=== PATIENT | male | born 1940 | race Caucasian/White ===

== ENCOUNTER 2020-11-20 14:07 | Inpatient (IN) ==
[2020-11-25] MEDS ORDERED: Acetaminophen 325 MG TABLET PO PRN (20:40)
[2020-11-25] MEDS: Apixaban 5 MG TABLET PO SCH (22:23)
[2020-11-26 05:47] LABS: Hematocrit 51.7 % (37.5-50.1); Hemoglobin 16.5 g/dL (12.9-16.9); Mean Corpuscular HGB Conc 31.9 g/dL (31.6-35.5); Mean Corpuscular Hemoglobin 29.2 pg (28.0-33.3); Mean Corpuscular Volume 91.5 fL (83.0-100.0); Mean Platelet Volume 11.7 fL (9.4-12.4); Platelet Count 178 K/mcL (140-400); Red Blood Count 5.65 M/mcL (4.19-5.50); Red Cell Distribution Width 13.2 % (11.5-14.5); White Blood Count 11.8 K/mcL (4.3-11.1)
[2020-11-26 06:07] LABS: BUN/Creatinine Ratio 40 (6-26); Blood Urea Nitrogen 40 mg/dL (8-23); Calcium 9.5 mg/dL (8.6-10.3); Carbon Dioxide 27 mEq/L (23-29); Chloride 105 mEq/L (98-107); Glucose 135 mg/dL (70-105); Osmolality,Calculated 296 (280-300); Potassium 4.1 mEq/L (3.5-5.1); Sodium 137 mEq/L (136-145); eGFR For African Americans > 60 (> 60); eGFR For Non-African Americans > 60 (> 60)
[2020-11-26] MEDS: Metoprolol XL (24 HR) Succ 25 MG TAB.ER.24H PO SCH (08:33)
[2020-11-26] MEDS: Apixaban 5 MG TABLET PO SCH ×2 (08:33→22:22)
[2020-11-26] MEDS: Aspirin 81 MG TAB.CHEW PO SCH (08:33)
[2020-11-27] MEDS: Aspirin 81 MG TAB.CHEW PO SCH (08:29)
[2020-11-27] MEDS: Metoprolol XL (24 HR) Succ 25 MG TAB.ER.24H PO SCH (08:29)
[2020-11-27] MEDS: Apixaban 5 MG TABLET PO SCH ×2 (08:30→21:10)
[2020-11-28] MEDS: Metoprolol XL (24 HR) Succ 25 MG TAB.ER.24H PO SCH (07:54)
[2020-11-28] MEDS: Aspirin 81 MG TAB.CHEW PO SCH (07:54)
[2020-11-28] MEDS: Apixaban 5 MG TABLET PO SCH ×2 (07:54→21:40)
[2020-11-29] MEDS: Aspirin 81 MG TAB.CHEW PO SCH (08:14)
[2020-11-29] MEDS: Apixaban 5 MG TABLET PO SCH ×2 (08:14→20:25)
[2020-11-29] MEDS: Metoprolol XL (24 HR) Succ 25 MG TAB.ER.24H PO SCH (08:14)
[2020-11-30 05:09] LABS: Basophils # 0.1 K/mcL (0.0-0.2); Basophils % 0.7 %; Eosinophils # 0.3 K/mcL (0.0-0.6); Eosinophils % 2.4 %; Hemoglobin 15.3 g/dL (12.9-16.9); Immature Granulocytes % 0.4 % (0-4); Lymphocytes # 1.8 K/mcL (0.6-4.6); Lymphocytes % 17.2 %; Mean Corpuscular HGB Conc 33.3 g/dL (31.6-35.5); Mean Corpuscular Hemoglobin 29.5 pg (28.0-33.3); Mean Corpuscular Volume 88.8 fL (83.0-100.0); Monocytes # 1.2 K/mcL (0.0-1.3); Monocytes % 11.7 %; Neutrophils # 7.1 K/mcL (1.6-8.9); Platelet Count 201 K/mcL (140-400); Red Blood Count 5.18 M/mcL (4.19-5.50); Red Cell Distribution Width 13.1 % (11.5-14.5); Segmented Neutrophils % 67.6 %; White Blood Count 10.5 K/mcL (4.3-11.1)
[2020-11-30 05:21] LABS: BUN/Creatinine Ratio 20 (6-26); Blood Urea Nitrogen 19 mg/dL (8-23); Carbon Dioxide 27 mEq/L (23-29); Chloride 103 mEq/L (98-107); Glucose 90 mg/dL (70-105); Osmolality,Calculated 284 (280-300); Potassium 4.1 mEq/L (3.5-5.1); Sodium 136 mEq/L (136-145); eGFR For African Americans > 60 (> 60); eGFR For Non-African Americans > 60 (> 60)
[2020-11-30] MEDS: Aspirin 81 MG TAB.CHEW PO SCH (08:44)
[2020-11-30] MEDS: Metoprolol XL (24 HR) Succ 25 MG TAB.ER.24H PO SCH (08:44)
[2020-11-30] MEDS: Apixaban 5 MG TABLET PO SCH ×2 (08:44→20:55)
[2020-12-01] MEDS: Aspirin 81 MG TAB.CHEW PO SCH (08:49)
[2020-12-01] MEDS: Apixaban 5 MG TABLET PO SCH ×2 (08:49→19:55)
[2020-12-01] MEDS: Metoprolol XL (24 HR) Succ 25 MG TAB.ER.24H PO SCH (08:49)
[2020-12-02] MEDS: Aspirin 81 MG TAB.CHEW PO SCH (08:10)
[2020-12-02] MEDS: Metoprolol XL (24 HR) Succ 25 MG TAB.ER.24H PO SCH (08:10)
[2020-12-02] MEDS: Apixaban 5 MG TABLET PO SCH ×2 (08:10→20:29)
[2020-12-03] MEDS: Apixaban 5 MG TABLET PO SCH ×2 (08:17→21:37)
[2020-12-03] MEDS: Aspirin 81 MG TAB.CHEW PO SCH (08:17)
[2020-12-03] MEDS: Metoprolol XL (24 HR) Succ 25 MG TAB.ER.24H PO SCH (08:17)
[2020-12-04] MEDS: Apixaban 5 MG TABLET PO SCH ×2 (08:24→20:20)
[2020-12-04] MEDS: Metoprolol XL (24 HR) Succ 25 MG TAB.ER.24H PO SCH (08:24)
[2020-12-04] MEDS: Aspirin 81 MG TAB.CHEW PO SCH (08:24)
[2020-12-04] MEDS ORDERED: E-Z-HD (BARIUM SULF) SUSPENSION PO ONE (12:21)
[2020-12-04] MEDS ORDERED: E-Z-PAQUE (BARIUM SULF) SUSP 1 BOTTLE PO ONE (12:21)
[2020-12-05 06:03] LABS: Hematocrit 46.2 % (37.5-50.1); Hemoglobin 14.9 g/dL (12.9-16.9); Mean Corpuscular HGB Conc 32.3 g/dL (31.6-35.5); Mean Corpuscular Hemoglobin 28.7 pg (28.0-33.3); Mean Platelet Volume 11.3 fL (9.4-12.4); Platelet Count 230 K/mcL (140-400); Red Blood Count 5.19 M/mcL (4.19-5.50); Red Cell Distribution Width 13.3 % (11.5-14.5); White Blood Count 6.9 K/mcL (4.3-11.1)
[2020-12-05 06:43] VITALS: BP 123/64
[2020-12-05 07:29] LABS: BUN/Creatinine Ratio 16 (6-26); Blood Urea Nitrogen 16 mg/dL (8-23); Calcium 9.2 mg/dL (8.6-10.3); Carbon Dioxide 29 mEq/L (23-29); Chloride 103 mEq/L (98-107); Glucose 92 mg/dL (70-105); Magnesium 2.1 mg/dL (1.6-2.6); Osmolality,Calculated 289 (280-300); Potassium 4.2 mEq/L (3.5-5.1); Sodium 139 mEq/L (136-145); eGFR For African Americans > 60 (> 60); eGFR For Non-African Americans > 60 (> 60)
[2020-12-05] MEDS: Metoprolol XL (24 HR) Succ 25 MG TAB.ER.24H PO SCH (08:22)
[2020-12-05] MEDS: Aspirin 81 MG TAB.CHEW PO SCH (08:22)
[2020-12-05] MEDS: Apixaban 5 MG TABLET PO SCH (08:23)
== END 2020-12-05 14:30 | disposition home health service (06) | DRG 57 ==
LOC: INPGRE 11-25 19:06
PROVIDERS: ADMIT Family Medicine; ATTEND Family Medicine